=== PATIENT | female | born 1995 | race Caucasian/White ===

== ENCOUNTER 2019-05-23 12:22 | Inpatient (IN) ==
[2019-05-23] MEDS: CLINDAMYCIN INJ 600 MG in PREMIX 1 EACH IV SCH ×2 (13:26→20:24)
[2019-05-23] MEDS: ACETAMINOPHEN 325 MG TABLET PO PRN ×3 (13:28→21:42)
[2019-05-23] MEDS: oxyCODONE/ACETAMINOPHEN 5-325 MG TABLET PO PRN ×2 (13:29→17:54)
[2019-05-23] MEDS: DEXTROSE 5% NACL 0.9% 1,000 ML IV SCH ×2 (13:36→21:41)
[2019-05-23 13:41] LABS: Basophils # 0.1 10*3/uL (0.0-0.2); Basophils % 0.3 % (0.0-0.8); Eosinophils # 0.1 10*3/uL (0.0-0.87); Eosinophils % 0.3 % (0.00-10.9); Hematocrit 41.5 VOL% (35.7-47.0); Hemoglobin 13.4 GM/DL (12.0-16.0); Immature Granulocytes % 0.7 %; Immature Granulocytes Absolute 0.12 #; Lymphocytes # 1.1 10*3/uL (1.4-4.0); Lymphocytes % 5.8 % (21.3-54.2); Mean Corpuscular HGB Conc 32.3 GM/DL (32-36); Mean Corpuscular Volume 94.1 FL (87-102); Monocytes % 2.3 % (1.7-12.7); Neutrophils % 90.6 % (38.7-73.9); Platelet Count 336 T/CUMM (130-400); Red Blood Count 4.41 MC/CUMM (3.8-5.5); Red Cell Distribution Width 11.8 % (9.3-17.3); White Blood Count 18.3 T/CUMM (4-12)
[2019-05-23 14:03] LABS: Albumin 3.7 G/DL (3.4-5.0); Bilirubin,Total 0.6 MG/DL (0.2-1.0); Calcium 8.5 MG/DL (8.5-10.1); Osmolality,Calculated 278.4 MOS/KG (273-304); Total Protein 7.7 G/DL (6.4-8.3)
[2019-05-23 14:11] LABS: Lymphocytes 10 % (20-55); Platelet Estimate Adequate; Segmented Neutrophils 87 % (50-85); Total Cells Counted 100
[2019-05-23] MEDS: IBUPROFEN 800 MG TABLET PO PRN (19:02)
[2019-05-24] MEDS: oxyCODONE/ACETAMINOPHEN 5-325 MG TABLET PO PRN ×2 (02:10→22:59)
[2019-05-24] MEDS: ACETAMINOPHEN 325 MG TABLET PO PRN (04:24)
[2019-05-24] MEDS: DEXTROSE 5% NACL 0.9% 1,000 ML IV SCH ×3 (04:31→21:25)
[2019-05-24 05:50] LABS: Basophils % 0.4 % (0.0-0.8); Eosinophils # 0.1 10*3/uL (0.0-0.87); Eosinophils % 0.9 % (0.00-10.9); Hematocrit 35.5 VOL% (35.7-47.0); Hemoglobin 11.6 GM/DL (12.0-16.0); Immature Granulocytes % 0.6 %; Immature Granulocytes Absolute 0.06 #; Lymphocytes # 0.8 10*3/uL (1.4-4.0); Lymphocytes % 8.1 % (21.3-54.2); Mean Corpuscular HGB Conc 32.7 GM/DL (32-36); Mean Corpuscular Volume 92.4 FL (87-102); Mean Platelet Volume 9.6 FL (9.6-12.0); Monocytes % 2.8 % (1.7-12.7); Neutrophils % 87.2 % (38.7-73.9); Platelet Count 268 T/CUMM (130-400); Red Blood Count 3.84 MC/CUMM (3.8-5.5); Red Cell Distribution Width 11.7 % (9.3-17.3); White Blood Count 9.6 T/CUMM (4-12)
[2019-05-24] MEDS: CLINDAMYCIN INJ 600 MG in PREMIX 1 EACH IV SCH ×2 (06:07→21:25)
[2019-05-24] MEDS: IBUPROFEN 800 MG TABLET PO PRN ×2 (07:36→15:27)
[2019-05-24] MEDS ORDERED: DOCUSATE SODIUM 100 MG CAPSULE PO PRN (17:50)
[2019-05-25] MEDS: oxyCODONE/ACETAMINOPHEN 5-325 MG TABLET PO PRN (04:31)
[2019-05-25] MEDS: CLINDAMYCIN INJ 600 MG in PREMIX 1 EACH IV SCH (05:32)
[2019-05-25] MEDS: DEXTROSE 5% NACL 0.9% 1,000 ML IV SCH (06:34)
[2019-05-25 08:33] VITALS: BP 116/70
[2019-05-25] MEDS: IBUPROFEN 800 MG TABLET PO PRN (08:37)
[2019-05-25] MEDS: ACETAMINOPHEN 325 MG TABLET PO PRN (12:25)
[2019-05-25] MEDS ORDERED: CLINDAMYCIN 300 MG CAPSULE PO SCH (21:00)
== END 2019-05-25 12:34 | disposition home or self-care (01) | DRG 776 ==
LOC: N.2E → N.2EOUT 12:22 → EDSTATUS 05-25 11:11 → N.2E 05-25 11:14
PROVIDERS: ADMIT Obstetrics & Gynecology; ATTEND Obstetrics & Gynecology

== ENCOUNTER 2019-05-31 21:10 | Observation (INO) ==
[2019-05-31] MEDS ORDERED: SODIUM CHLORIDE 0.9% 1,000 ML IV STA (23:07)
[2019-05-31] MEDS ORDERED: CEFEPIME 2,000 MG in SODIUM CHLORIDE 0.9% 100 ML IV STA ×2 (23:08→23:55)
[2019-05-31] MEDS ORDERED: VANCOMYCIN INJ 1,000 MG in SODIUM CHLORIDE 0.9% 250 ML IV STA (23:09)
[2019-05-31 23:39] LABS: Basophils # 0.1 10*3/uL (0.0-0.2); Basophils % 0.6 % (0.0-0.8); Eosinophils # 0.5 10*3/uL (0.0-0.87); Eosinophils % 3.4 % (0.00-10.9); Hematocrit 40.9 VOL% (35.7-47.0); Hemoglobin 13.6 GM/DL (12.0-16.0); Immature Granulocytes % 0.7 %; Lymphocytes # 1.4 10*3/uL (1.4-4.0); Lymphocytes % 10.1 % (21.3-54.2); Mean Corpuscular HGB Conc 33.3 GM/DL (32-36); Mean Corpuscular Volume 91.9 FL (87-102); Mean Platelet Volume 9.6 FL (9.6-12.0); Monocytes % 4.6 % (1.7-12.7); Neutrophils % 80.6 % (38.7-73.9); Platelet Count 479 T/CUMM (130-400); Red Blood Count 4.45 MC/CUMM (3.8-5.5); Red Cell Distribution Width 11.8 % (9.3-17.3)
[2019-05-31] MEDS ORDERED: ONDANSETRON 4 MG/2 ML VIAL IV STA (23:48)
[2019-05-31] MEDS ORDERED: CEFEPIME 2,000 MG VIAL ONE (23:56)
[2019-06-01] LABS: Apearance,Urine CLEAR (Clear); Bilirubin,Urine Negative (Negative); Blood, Urine Moderate mg/dL (Negative); Glucose,Urine (UA) Negative (Negative); Ketones,Urine Negative (Negative); Mucus,Urine Occasional /LPF (Occasional); Nitrite,Urine Negative (Negative); Protein,Urine Negative; RBC,Urine 5 /HPF (0-4); Squamous Epithelial Cell,Urine Occasional /HPF (0-10); Urine Color Yellow (Yellow); Urine Specific Gravity 1.016 (1.001-1.035); Urine Urobilinogen < 2.0 EU/DL (0.2-1.0); WBC,Urine 19 /HPF (0-6)
[2019-06-01 00:04] LABS: Albumin 4.3 G/DL (3.4-5.0); Bilirubin,Total 0.6 MG/DL (0.2-1.0); Calcium 9.7 MG/DL (8.5-10.1); Osmolality,Calculated 273.8 MOS/KG (273-304); Total Protein 8.4 G/DL (6.4-8.3)
[2019-06-01] MEDS: MORPHINE 4 MG/1 ML VIAL IV STA (00:25)
[2019-06-01] MEDS ORDERED: ONDANSETRON 4 MG/2 ML VIAL IV PRN (00:29)
[2019-06-01] MEDS: DEXTROSE 5% LACTATED RINGERS 1,000 ML IV SCH ×2 (02:19→14:33)
[2019-06-01] MEDS: CEFEPIME 1,000 MG in SODIUM CHLORIDE 0.9% 100 ML IV SCH ×3 (08:42→20:35)
[2019-06-01] MEDS: FAMOTIDINE 20 MG/2 ML VIAL IV SCH ×2 (08:42→20:34)
[2019-06-01 09:44] LABS: Basophils % 0.4 % (0.0-0.8); Eosinophils # 0.5 10*3/uL (0.0-0.87); Hematocrit 40.1 VOL% (35.7-47.0); Hemoglobin 12.9 GM/DL (12.0-16.0); Immature Granulocytes % 0.7 %; Immature Granulocytes Absolute 0.06 #; Lymphocytes # 1.1 10*3/uL (1.4-4.0); Lymphocytes % 12.5 % (21.3-54.2); Mean Corpuscular HGB Conc 32.2 GM/DL (32-36); Mean Platelet Volume 9.1 FL (9.6-12.0); Monocytes % 5.7 % (1.7-12.7); Neutrophils % 74.7 % (38.7-73.9); Platelet Count 376 T/CUMM (130-400); Red Blood Count 4.22 MC/CUMM (3.8-5.5)
[2019-06-01] MEDS: ACETAMINOPHEN 325 MG TABLET PO PRN ×2 (10:21→18:16)
[2019-06-01] MEDS ORDERED: IBUPROFEN 800 MG TABLET PO PRN (14:02)
[2019-06-01] MEDS: diphenhydrAMINE CAP 25 MG CAPSULE PO PRN ×2 (14:18→18:16)
[2019-06-01] MEDS ORDERED: KETOROLAC 30 MG/1 ML VIAL IM ONE (15:00)
[2019-06-01] MEDS: VANCOMYCIN INJ 1,500 MG in SODIUM CHLORIDE 0.9% 500 ML IV SCH (15:28)
[2019-06-01] MEDS: KETOROLAC 30 MG/1 ML VIAL IV PRN (18:17)
[2019-06-02] MEDS: VANCOMYCIN INJ 1,500 MG in SODIUM CHLORIDE 0.9% 500 ML IV SCH ×2 (01:25→15:55)
[2019-06-02] MEDS: DEXTROSE 5% LACTATED RINGERS 1,000 ML IV SCH ×3 (02:30→11:20)
[2019-06-02] MEDS: CEFEPIME 1,000 MG in SODIUM CHLORIDE 0.9% 100 ML IV SCH ×4 (03:25→20:44)
[2019-06-02] MEDS: KETOROLAC 30 MG/1 ML VIAL IV PRN ×2 (05:30→15:51)
[2019-06-02] MEDS: ACETAMINOPHEN 325 MG TABLET PO PRN ×3 (05:31→20:45)
[2019-06-02] MEDS: FAMOTIDINE 20 MG/2 ML VIAL IV SCH ×2 (08:12→20:45)
[2019-06-03] MEDS: CEFEPIME 1,000 MG in SODIUM CHLORIDE 0.9% 100 ML IV SCH ×2 (01:44→08:03)
[2019-06-03] MEDS: VANCOMYCIN INJ 1,500 MG in SODIUM CHLORIDE 0.9% 500 ML IV SCH (03:13)
[2019-06-03] MEDS: DEXTROSE 5% LACTATED RINGERS 1,000 ML IV SCH (04:44)
[2019-06-03 08:02] VITALS: BP 156/99
[2019-06-03] MEDS: FAMOTIDINE 20 MG/2 ML VIAL IV SCH (08:05)
== END 2019-06-03 11:40 | disposition home or self-care (01) ==
LOC: N.ED 21:10 → N.EDINP 21:10 → N.3E 06-01 01:26 → N.2E 06-01 09:58
PROVIDERS: ADMIT Obstetrics & Gynecology; ATTEND Obstetrics & Gynecology